=== PATIENT | female | born 1995 | race Caucasian/White ===

== ENCOUNTER 2018-05-30 00:45 | Emergency (ER) | payer OTHER ==
[~2018-05-30] VITALS: Ht 167.6 cm; Wt 84.1 kg
[2018-05-30] MEDS ORDERED: PRO AIR (00:56)
[2018-05-30] MEDS ORDERED: SING10TA32 PO ×2 (00:56→01:23)
[2018-05-30] MEDS ORDERED: SYMB16INH INH ×2 (00:56→01:23)
[2018-05-30] MEDS: IPRATROPIUM 0.5MG/ALBUTEROL 2.5MG INH SOL UD 3ML (DUONEB)(J7620) NEB PRN ×2 (01:30→01:48)
[2018-05-30] MEDS ORDERED: ALBUTEROL 90 MCG/ACT 8GM HFA INHALER INH ONE (01:30)
[2018-05-30] MEDS ORDERED: BREAMIS6 XX (01:59)
[2018-05-30 02:06] VITALS: BP 122/76
== END 2018-05-30 02:07 | disposition home or self-care (01) ==
LOC: M ED 01:18
DX: J45.901 Unspecified asthma with (acute) exacerbation (principal); Z76.0 Encounter for issue of repeat prescription; Z82.5 Family history of asthma and other chronic lower respiratory diseases

== ENCOUNTER 2019-11-06 18:56 | Emergency (ER) | payer OTHER ==
[~2019-11-06] VITALS: Ht 167.6 cm; Wt 93.0 kg
[~2019-11-06 18:56] MED LIST: BREAMIS6 XX; PRO AIR; SING10TA32 PO; SYMB16INH INH
[2019-11-06] MEDS ORDERED: ADV100INH INH (19:03)
[2019-11-06] MEDS ORDERED: HYDROCORTISONE 2.5% 20GM OINTMENT TOP STA (20:09)
[2019-11-06] MEDS ORDERED: HYDR1CRE30 TOP (20:11)
[2019-11-06 20:30] VITALS: BP 121/86
== END 2019-11-06 20:33 | disposition home or self-care (01) ==
LOC: M ED 18:56
DX: L50.9 Urticaria, unspecified (principal)

== ENCOUNTER 2019-12-02 10:16 | Emergency (ER) | payer OTHER ==
[~2019-12-02 10:16] MED LIST changes: +ADV100INH INH; +HYDR1CRE30 TOP; +KETOROLAC 30 MG/ML 1ML VIAL As Ordered ONE; +ONDANSETRON 4MG/2ML VIAL As Ordered ONE
[2019-12-02] MEDS ORDERED: ONDANSETRON 4MG/2ML VIAL ONE (10:17)
[2019-12-02] MEDS ORDERED: KETOROLAC 30 MG/ML 1ML VIAL ONE (10:17)
[2019-12-29 11:45] LABS: AMORPHOUS SEDIMENT SMALL (NEGATIVE); APPEARANCE, URINE CLOUDY (CLEAR); BACTERIA, URINE AUTO 1+ (NEGATIVE); BILIRUBIN, URINE AUTO NEGATIVE (NEGATIVE); BLOOD, URINE BLOOD 1+ (NEGATIVE); COLOR, URINE YELLOW (YELLOW); GLUCOSE, URINE (UA) AUTO NEGATIVE (NEGATIVE); KETONE, URINE AUTO NEGATIVE (NEGATIVE); LEUKOCYTE ESTERASE, URINE AUTO NEGATIVE (NEGATIVE); MUCUS, URINE SMALL (NEGATIVE); NITRITE, URINE AUTO NEGATIVE (NEGATIVE); PROTEIN, URINE AUTO 1+ mg/dL (NEGATIVE); RBC, URINE AUTO 8 /HPF (0-3); SQUAMOUS EPITHELIAL CELL UR AU 5 /HPF (0-6); UROBILINOGEN, URINE AUTO 0.2 mg/dL (0.0-2.0); WBC, URINE AUTO 2 /HPF (0-3)
[2019-12-29 14:33] LABS: BASO # 0.1 10^3/uL (0.0-0.2); BASO % 0.8 % (0.0-1.0); EOS # 0.6 10^3/uL (0.0-0.5); EOS % 4.9 % (0.0-3.0); HEMATOCRIT 45.4 % (36.0-47.0); HEMOGLOBIN 14.5 g/dl (12.0-15.5); LYMPH # 2.2 10^3/uL (1.5-5.0); LYMPH % 16.9 % (24.0-44.0); MEAN CORPUSCULAR HEMOGLOBIN 27.5 pg (27.0-33.0); MEAN CORPUSCULAR HGB CONC 31.9 g/dl (32.0-36.5); MEAN CORPUSCULAR VOLUME 86.1 fl (80.0-96.0); MONO # 0.8 10^3/uL (0.0-0.8); MONO % 5.9 % (0.0-5.0); NEUTROPHILS # 9.3 10^3/uL (1.5-8.5); NEUTROPHILS % 71.1 % (36.0-66.0); PLATELET COUNT, AUTOMATED 380 10^3/uL (150-450); RED BLOOD COUNT 5.27 10^6/uL (4.00-5.40); WHITE BLOOD COUNT 13.1 10^3/uL (4.0-10.0)
[2020-01-09 07:29] LABS: BLOOD UREA NITROGEN 13 MG/DL (7-18); CHLORIDE LEVEL 109 MEQ/L (98-107); CREATININE FOR GFR 1.04 MG/DL (0.55-1.30); GLOMERULAR FILTRATION RATE > 60.0 (>60); GLUCOSE, FASTING 107 MG/DL (70-100); POTASSIUM SERUM 4.3 MEQ/L (3.5-5.1); SODIUM LEVEL 141 MEQ/L (136-145)
[2020-01-09 07:30] LABS: ALBUMIN 4.1 GM/DL (3.2-5.2); ALT/SGPT 51 IU/L (0-32); BILIRUBIN,DIRECT < 0.1 MG/DL (0.0-0.2); BILIRUBIN,TOTAL 0.3 MG/DL (0.2-1.0); CALCIUM LEVEL 8.8 MG/DL (8.5-10.1); CARBON DIOXIDE LEVEL 24 mmol/L (20-29); HCG, SERUM QUALITATIVE NEGATIVE (NEGATIVE); TOTAL PROTEIN 7.7 GM/DL (6.4-8.2)
== END 2019-12-02 12:50 | disposition home or self-care (01) ==
LOC: M ED 10:16
DX: E28.2 Polycystic ovarian syndrome (principal); J45.909 Unspecified asthma, uncomplicated; Z79.899 Other long term (current) drug therapy
CPT/HCPCS: 36415; 76856; 80053; 81001; 82248; 84703; 85025; 93976; 99283; J1885; J2405